=== PATIENT | female | born 1960 | race African-American/Black ===

== ENCOUNTER 2017-08-20 13:02 | Emergency (ER) | payer MEDICAID ==
[~2017-08-20] VITALS: Ht 172.7 cm; Wt 77.0 kg
[~2017-08-20 13:02] MED LIST: ALBU18HF2 IH; ASPI-1159 PO; CHLO25TA27 PO; CLOP75TA15 PO; LISI10TA5 PO; METR250T PO; PHEN100C4 PO
[2017-08-20 14:31] LABS: BASOPHILS % 1.1 % (0.0-2.0); EOSINOPHILS % 5.2 % (0.0-5.0); HEMATOCRIT. 34.4 % (36.0-48.0); HEMOGLOBIN. 11.5 g/dL (12.0-16.0); LYMPHOCYTES % 28.6 % (20.0-50.0); MEAN CORPUSCULAR HEMOGLOBIN 29.7 pg (28.0-32.0); MEAN CORPUSCULAR VOLUME 88.7 fL (81.0-99.0); MONOCYTES % 6.9 % (2.0-8.0); NEUTROPHILS % 58.2 % (40.0-76.0); PLATELET 290 x1000/uL (130-400); RED BLOOD CELL COUNT 3.87 mill/uL (4.2-5.4); RED CELL DISTRIBUTION WIDTH 14.7 % (11.6-14.6)
[2017-08-20 14:38] LABS: PROTHROMBIN TIME 10.7 sec (9.4-11.6)
[2017-08-20 14:48] LABS: CARBON DIOXIDE 31 mEq/L (21-32); CHLORIDE 108 mEq/L (98-107); TROPONIN I < 0.02 ng/mL (0.00-0.04)
[2017-08-20 15:12] LABS: HEPATITIS B SURFACE ANTIGEN NEGATIVE
[2017-08-20 15:41] LABS: HEPATITIS B CORE AB IGM NEGATIVE
[2017-08-20 15:42] LABS: HEPATITIS A AB IGM NEGATIVE (NEGATIVE)
[2017-08-20 22:16] VITALS: BP 106/64
== END 2017-08-21 00:30 | disposition home or self-care (01) ==
LOC: ER 15:02
DX: R26.81 Unsteadiness on feet (principal); E87.8 Other disorders of electrolyte and fluid balance, not elsewhere classified; E11.21 Type 2 diabetes mellitus with diabetic nephropathy; E87.6 Hypokalemia; D64.9 Anemia, unspecified; E86.0 Dehydration; D72.1 Eosinophilia; R74.8 Abnormal levels of other serum enzymes; F17.200 Nicotine dependence, unspecified, uncomplicated; I69.30 Unspecified sequelae of cerebral infarction; R56.9 Unspecified convulsions; Z87.440 Personal history of urinary (tract) infections; Z79.82 Long term (current) use of aspirin
CPT/HCPCS: 36415; 70450; 71010; 80053; 83036; 83880; 84484; 85025; 85610; 85651; 86705; 86709; 86803; 87340; 93005; 99285